=== PATIENT | female | born 1935 | race Caucasian/White ===

== ENCOUNTER 2018-03-30 21:34 | Emergency (ER) | payer OTHER, BC ==
[~2018-03-30] VITALS: Ht 152.4 cm; Wt 86.2 kg
[~2018-03-30 21:34] MED LIST: ACETAMINOPHEN-1 EAC1 PO; ALLEGRA ALLERG180 MG; AMLODIPINE BESY10 MG PO; APAP650 PO; AVAPRO300 MG PO; BYSTOLIC 5 MG5 M1 PO; CELEBREX 200 M200 M1; CYMBALTA30 MG; DESYREL50 MG; HYDROCODON-ACE1 EAC7; KEPPRA 500 MG500 M1; LEVAQUIN 500 M500 MG PO; LEVOTHROID100 MC1; MAXZIDE-25 MG1 EACH PO; PHENERGAN 25 MG25 M1 PO; PRILOSEC 20 MG20 MG; ZOLOFT50 M1 PO
[2018-03-30] MEDS ORDERED: AVAPRO300 MG PO (21:42)
[2018-03-30] MEDS ORDERED: CELEBREX100 MG/1 C PO (21:44)
[2018-03-30] MEDS ORDERED: [UNRECOGNIZED DRUG - OTHER] (21:45)
[2018-03-30] MEDS ORDERED: CARDIZEM CD120 MG PO (21:46)
[2018-03-30] MEDS ORDERED: ELIQUIS5 MG PO (21:46)
[2018-03-30] MEDS ORDERED: OXYBUTYNIN 5 MG5 M2 PO (21:46)
[2018-03-30] MEDS ORDERED: ARICEPT 5 MG TAB5 MG PO (21:48)
[2018-03-30] MEDS ORDERED: LASIX 40 MG TAB40 M2 PO (21:49)
[2018-03-30] MEDS ORDERED: PROBIOTIC1 EAC1 PO (21:49)
[2018-03-30] MEDS ORDERED: POTASSIUM20 PO (21:50)
[2018-03-31] MEDS ORDERED: TRAMADOL 50 MG50 MG PO (01:49)
== END 2018-03-31 02:18 | disposition home or self-care (01) ==
LOC: ER 21:34
DX: S70.02XA Contusion of left hip, initial encounter (principal); I10 Essential (primary) hypertension; F32.9 Major depressive disorder, single episode, unspecified; F41.9 Anxiety disorder, unspecified; Z90.710 Acquired absence of both cervix and uterus; Z88.2 Allergy status to sulfonamides; W06.XXXA Fall from bed, initial encounter; Y93.89 Activity, other specified; Y92.89 Other specified places as the place of occurrence of the external cause; Y99.8 Other external cause status

== ENCOUNTER 2020-06-17 10:15 | Inpatient (IN) | payer OTHER, BC ==
[~2020-06-17] VITALS: Ht 167.6 cm; Wt 117.3 kg
--- NOTE | ~2020-06-17 | EMS ---
[facility] [address] [place] [address] EMS Patient Care Report Name: HERLINDA LOMBARDI Room #: REG GRETTA Louise#: [id number] Admission: 06/17/20 Attend Phys: Discharge: Date of : 39 Report #: [id number] THIS REPORT FOR: //name// Report Transmitted: 06/17/2020 10:11 EMS Care Summary [facility] Incident [id number] @ 06/17/2020 09:27 Incident Location [address] [place] [address] Patient HERLINDA LOMBARDI Female, 85 Years 1935 Patient Address [address] [place] [address] Patient History Congestive Heart Failure (CHF),Dementia,Hypertension (HTN),Atrial Fibrillation,Past Traumatic Brain Injury,Hypothyroidism, Patient Allergies Sulfa, Patient Medications Levothyroxine, Trazodone, Eliquis, Senna, Acetaminophen, Metoprolol, Donepezil, Furosemide, Chief Complaint Vomiting Disposition Transported No Lights/[place] Dispatch Reason Breathing Problem Transported To [facility] Narrative [facility] Medic 1 dispatched to [facility] for a 85 year old female pt with a chief complaint of low O2 and vomiting. Upon arrival crew was met by [facility] [address] [place] [address] EMS Patient Care Report Name: HERLINDA LOMBARDI Room #: REG ER [facility]#: [id number] Admission: 06/17/20 Attend Phys: Discharge: Date of : 39 Report #: [id number] nursing staff who stated that they noticed her O2 sat was in the 80s and placed on her 4 L O2. Staff stated that she had also been vomiting and sounded congested. Pt was found sitting upright in bed. Pt presented with pink dry skin and a patent airway. Pt was placed on 4 L O2. Staff stated that the pt had a hx of a TBI and said inappropriate statements. Pts hx made it difficult for crew to assess. Pt stated that she was "hurting all over". Pt was palced on stretcher by crew and secured using straps. 20 G IV was started in pts left hand. Pt stated multiple times during transport that she "hurt all over". Pt asked repeating questions. Pt was alert to self and event. Pt stated that she felt unwell. Lungs sounds were clear and equal in all lobes. Pt stated that it felt like she had mucus stuck in her throat. Pt denied nausea. Pt denied SOA. Pt was transported to [facility] without incident and care was transferred to ED staff. Initial Vitals @09:39P: 102,BP: 131/89,Pain: 0/10,GCS: 15,CO: 4,SpO2: 97, @09:54P: 92,R: 11,Pain: 2/10,GCS: 15,SpO2: 96, @09:49P: 109,R: 15,BP: 145/95,Pain: 2/10,GCS: 15,CO: 4,Revised Trauma: 12, @09:49P: 104,R: 10,Pain: 2/10,GCS: 15,SpO2: 97, Assessments @09:35MENTAL:Person Oriented,Place Oriented,Event Oriented,SKIN:HEENT:Eyes: Left: Constricted,Eyes: Right: Constricted,Head/Face: No Abnormalities,LUNG SOUNDS:General: No Abnormalities,ABDOMEN:General: No Abnormalities,PELVIS//GI:No Abnormalities,EXTREMITIES:Capillary Refill: Right Upper: < 2 Sec,Left Arm: No Abnormalities,Right Arm: No Abnormalities,Left Leg: No Abnormalities,Right Leg: No Abnormalities,PULSE:Brachial: 2+ Normal,NEURO:No Abnormalities, Impression Vomiting Procedures @09:35ALS AssessmentResponse: UnchangedSucceeded@09:43Normal Saline (.9% NaCl) - Cold 0cc (20 ga) Site: Hand-LeftResponse: UnchangedSucceeded Timeline 09:26,Call Received 09:26,Psap Call 09:27,Dispatched 09:29,En Route 09:31,On Scene 09:34,At Patient 09:35,ALS Assessment,Response: UnchangedSucceeded, 09:39,BP: 131/89 M,PULSE: 102,RR: R,SPO2: 97 Ox,ETCO2: ,BG: ,PAIN: 0,GCS: 15, 09:43,Normal Saline (.9% NaCl) - Cold 0cc 20 ga Site: Hand-Left,Response: [address] [address] EMS Patient Care Report Name: HERLINDA LOMBARDI Room #: REG [place]#: [id number] Admission: 06/17/20 Attend Phys: Discharge: Date of : 39 Report #: [id number] UnchangedSucceeded, 09:45,Depart Scene 09:49,BP: / M,PULSE: 104,RR: 10 R,SPO2: 97 Ox,ETCO2: ,BG: ,PAIN: 2,GCS: 15, 09:49,BP: 145/95 M,PULSE: 109,RR: 15 R,SPO2: Ox,ETCO2: ,BG: ,PAIN: 2,GCS: 15, 09:54,BP: / M,PULSE: 92,RR: 11 R,SPO2: 96 Ox,ETCO2: ,BG: ,PAIN: 2,GCS: 15, 10:05,At Destination 10:22,Call Closed Disclaimer v1.1 Copyright 2020 [employer] This EMS Care Summary contains data elements from the applicable legal record (which may be displayed differently). It is designed to provide pertinent information for the following purposes: continuity of care, clinical quality, and state data reporting. The complete legal record is available to ED staff and administrators of the receiving hospital in [employer] Patient Tracker. All data is provided "as is."
[~2020-06-17 10:15] MED LIST changes: +ARICEPT 5 MG TAB5 MG PO; +CARDIZEM CD120 MG PO; +CELEBREX100 MG/1 C PO; -DESYREL50 MG; +ELIQUIS5 MG PO; +LASIX 40 MG TAB40 M2 PO; +NAMENDA 10 MG T10 MG PO; +OXYBUTYNIN 5 MG5 M2 PO; +POTASSIUM20 PO; +PROBIOTIC1 EAC1 PO; +TRAMADOL 50 MG50 MG PO; +TRAZODONE HCL50 MG PO; +[UNRECOGNIZED DRUG - OTHER]
[2020-06-17 10:16] VITALS: BP 132/84
[2020-06-17 10:51] LABS: ABSOLUTE NEUTROPHILS 4.4 thou/uL (1.4-8.2); BASOPHILS 1.2 % (0.0-2.0); EOSINOPHILS 3.8 % (0.0-3.0); HEMATOCRIT 36.9 % (37.0-47.0); HEMOGLOBIN 11.9 gm/dL (12.0-15.0); LYMPHOCYTES 16.2 % (24.0-44.0); MCH 29.7 pg (26.0-34.0); MCHC 32.1 g/dL (28.0-37.0); MCV 92.5 fL (80.0-100.0); MONOCYTES 11.3 % (1.0-8.0); PLATELET COUNT 236 thou/uL (150-400); POLYS 67.5 % (36.0-66.0); RBC 3.99 mil/uL (4.20-5.00); RDW 17.4 % (10.5-14.5); WBC 6.6 thou/uL (4.0-11.0)
[2020-06-17 11:09] LABS: ANION GAP 10 mmol/L (7-16); BUN 32 mg/dL (7-18); CALCIUM 8.9 mg/dL (8.5-10.1); CHLORIDE 104 mmol/L (98-107); CO2 26 mmol/L (21-32); CREATININE 1.5 mg/dL (0.6-1.0); GLUCOSE 106 mg/dL (74-106); POTASSIUM 3.8 mmol/L (3.5-5.1); SODIUM 140 mmol/L (136-145)
[2020-06-17 11:19] LABS: DIRECT BILIRUBIN 0.1 mg/dL (<0.1-0.2); SGOT 24 U/L (15-37); SGPT 26 U/L (30-65); TOTAL BILIRUBIN 0.3 mg/dL (0.2-1.0); TOTAL PROTEIN 6.2 g/dL (6.4-8.2); TROPONIN-I <0.06 ng/mL (<0.06)
[2020-06-17 12:31] LABS: BE(vivo) 1.6 mmol/L (-2 to +3); HCO3 26.6 mmol/L (22.0-26.0); PCO2 43.5 mmHg (35.0-45.0); PO2 73.6 mmHg (80.0-100.0); pH 7.405 (7.360-7.450); sO2 94.8 % (92.0-98.0)
--- NOTE | 2020-06-17 16:53 | EKG ---
[facility] [place] [place] [address] ELECTROCARDIOGRAM REPORT Name: HARJITHERLINDA CLARK Room #: REG [facility]#: [id number] Admission: 06/17/20 Attend Phys: Discharge: Date of : 39 Report #: [id number] THIS REPORT FOR: cc: FAM - Family physician unknown FAM - Family physician unknown Rony Maki MD [facility] THIS REPORT FOR: //name// [facility] ED Test Date: 2020-06-17 Test Time: 11:23:54 Pat Name: HERLINDA LOMBARDI Department: Room: Gender: F Big Data Developer: no : 1935 Requested By: Sage Patricia Order Number: [id number] MD: Rony Maki Measurements Intervals Reading Rate: 81 P: OR: QRS: 57 QRSD: 101 T: 47 QT: 396 QTc: 460 Interpretive Statements Atrial fibrillation Nonspecific ST segment abnormality Compared to ECG 12/30/2014 20:35:52 Atrial fibrillation has replaced sinus rhythm Electronically Signed On 06-17-2020 16:53:27 CDT by Rony Maki [email or web address] <ELECTRONICALLY SIGNED> By: Rony Maki MD, [facility] 06/17/20 [id number] Rony Maki MD, [facility] /EPI
[2020-06-17 17:22] VITALS: BP 143/96
[2020-06-17] MEDS ORDERED: ELIQUIS2.5 MG PO (17:50)
[2020-06-17] MEDS ORDERED: BUSPIRONE HCL10 MG PO (17:51)
[2020-06-17] MEDS ORDERED: DULOXETINE HCL60 MG PO (17:51)
[2020-06-17] MEDS ORDERED: NAMENDA 10 MG T10 MG PO (17:53)
[2020-06-17] MEDS ORDERED: KAPSPARGO SPRIN50 MG PO (17:54)
[2020-06-17] MEDS ORDERED: KLOR-CON 10 ER10 MEQ PO ×2 (17:54→17:55)
[2020-06-17] MEDS ORDERED: ROXICODONE5 MG PO (17:57)
[2020-06-17 18:30] VITALS: BP 158/96
[2020-06-17] MEDS ORDERED: MIRALAX119 GM PO (18:51)
[2020-06-17] MEDS ORDERED: SUPER THERAVIT1 EACH PO (18:52)
[2020-06-17] MEDS ORDERED: SENNA PLUS TAB1 EACH PO (18:53)
[2020-06-17] MEDS ORDERED: VOLTAREN GEL 1100 G1 TOP (18:54)
[2020-06-17] MEDS ORDERED: DEXTROMETHORPHAN (19:13)
[2020-06-17] MEDS ORDERED: GUAIFENESIN (19:13)
[2020-06-17] MEDS ORDERED: HYDRALAZINE 2525 MG PO (19:14)
[2020-06-17 23:30] VITALS: BP 159/116
[2020-06-18 03:40] VITALS: BP 162/78
[2020-06-18 06:31] LABS: HEMATOCRIT 37.7 % (37.0-47.0); HEMOGLOBIN 12.4 gm/dL (12.0-15.0); MCH 29.8 pg (26.0-34.0); MCHC 32.8 g/dL (28.0-37.0); RBC 4.15 mil/uL (4.20-5.00); RDW 16.6 % (10.5-14.5); WBC 8.6 thou/uL (4.0-11.0)
[2020-06-18 06:56] LABS: CALCIUM 9.8 mg/dL (8.5-10.1); CREATININE 1.2 mg/dL (0.6-1.0); POTASSIUM 4.2 mmol/L (3.5-5.1)
[2020-06-18 07:46] VITALS: BP 80/59
[2020-06-18 08:58] VITALS: BP 158/96
[2020-06-18 16:05] VITALS: BP 96/51
[2020-06-18 20:02] VITALS: BP 104/54
[2020-06-19 04:02] VITALS: BP 153/87
[2020-06-19 07:07] LABS: CALCIUM 8.8 mg/dL (8.5-10.1); CREATININE 1.6 mg/dL (0.6-1.0); POTASSIUM 3.8 mmol/L (3.5-5.1)
[2020-06-19 08:08] VITALS: BP 147/83
[2020-06-19 17:23] VITALS: BP 126/56
[2020-06-19 19:59] VITALS: BP 128/49
--- NOTE | 2020-06-20 08:51 | 2DMMODE ---
[facility] [address] [facility] [place] [employer] [employer] [place] [address] 2 D/M-MODE ECHOCARDIOGRAM Name: HERLINDA LOMBARDI Room #: 455-P ADM IN M.R.#: [id number] Admission: 06/17/20 Attend Phys: Bjorn David MD Discharge: Date of : 39 Report #: [id number] THIS REPORT FOR: cc: FAM - Family physician unknown FAM - Family physician unknown Rudy Mancilla MD [facility] ~ APPROVED REPORT Study performed: 06/20/2020 08:10:07 EXAM: Comprehensive 2D, Doppler, and color-flow Echocardiogram Patient Location: Bedside Room #: [facility] Status: routine BSA: 2.24 HR: 64 bpm BP: 128/49 mmHg Rhythm: NSR Other Information Study Quality: Adequate/off axis Apicals. Technically limited study due to morbid obesity, no mobility. Indications Atrial Fibrillation Dyspnea 2D Dimensions RVDd: 39.42 mm IVSd: 11.29 (7-11mm) LVOT Diam: 19.71 (18-24mm) LVDd: 44.05 mm PWd: 11.00 (7-11mm) Ascending Ao: 27.91 (22-36mm) LVDs: 29.12 (25-40mm) Aortic Root: 31.38 mm Aortic Valve AoV Peak Jerald.: 1.19 m/s AO Peak Gr.: 5.65 mmHg LVOT Max P.47 mmHg LVOT Max V: 0.79 m/s JES Vmax: 2.02 cm2 Pulmonary Valve PV Peak Jerald.: 0.90 m/s PV Peak Gr.: 3.22 mmHg [facility] [address] [place] [address] 2 D/M-MODE ECHOCARDIOGRAM Name: HERLINDA LOMBARDI Room #: 455-P [facility] IN .R.#: [id number] Admission: 06/17/20 Attend Phys: Bjorn David MD Discharge: Date of : 39 Report #: [id number] Tricuspid Valve TR Peak Jerald.: 3.36 m/s RAP Estimate: 10.00 mmHg TR Peak Gr.: 45.22 mmHg PA Pressure: 55.00 mmHg Left Ventricle The left ventricle is normal size. There is normal left ventricular wall thickness. Left ventricular systolic function is normal. LVEF is 55-60%. This study is not technically sufficient to allow evaluation of the LV diastolic function due to atrial fibrillation. Right Ventricle The right ventricle is normal size. Atria Left atrium is dilated. Right atrium is dilated. Aortic Valve Aortic valve leaflets are mildly thickened and calcified. No aortic regurgitation is present. There is no aortic valvular stenosis. Mitral Valve Mitral valve leaflets are mildly thickened. Mild mitral annular calcification. Mild mitral regurgitation. No evidence of mitral valve stenosis. Tricuspid Valve The tricuspid valve is normal in structure. Moderate tricuspid regurgitation. Estimated PAP is 50-55mmHg. Pulmonic Valve The pulmonary valve is normal in structure. Trace pulmonic regurgitation. Great Vessels The aortic root is normal in size. The ascending aorta is normal in size. IVC is normal in size and collapses <50% with inspiration. Pericardium There is no pericardial effusion. <Conclusion> The left ventricle is normal size. [facility] [address] [place] [address] 2 D/M-MODE ECHOCARDIOGRAM Name: HERLINDA LOMBARDI Room #: [address] [place] [address] IN ..#: [id number] Admission: 06/17/20 Attend Phys: Bjorn David MD Discharge: Date of : 39 Report #: [id number] LVEF is 55-60%. This study is not technically sufficient to allow evaluation of the LV diastolic function due to atrial fibrillation. The right ventricle is normal size. Left atrium is dilated. Right atrium is dilated. Aortic valve leaflets are mildly thickened and calcified. There is no aortic valvular stenosis. Mitral valve leaflets are mildly thickened. Mild mitral annular calcification. Mild mitral regurgitation. Moderate tricuspid regurgitation. Estimated PAP is 50-55mmHg. The aortic root is normal in size. There is no pericardial effusion. <ELECTRONICALLY SIGNED> By: Rudy Mancilla MD, [facility] 06/20/20 [phone] 0851 Rudy Mancilla MD, FACC /INF
[2020-06-20 09:20] VITALS: BP 115/65
[2020-06-20 15:08] VITALS: BP 101/41
[2020-06-20 19:32] VITALS: BP 125/57
[2020-06-21 08:00] VITALS: BP 148/67
[2020-06-21 10:59] LABS: HEMATOCRIT 37.4 % (37.0-47.0); HEMOGLOBIN 11.9 gm/dL (12.0-15.0); MCH 29.1 pg (26.0-34.0); MCHC 31.8 g/dL (28.0-37.0); MCV 91.4 fL (80.0-100.0); RBC 4.09 mil/uL (4.20-5.00); RDW 16.6 % (10.5-14.5); WBC 8.1 thou/uL (4.0-11.0)
[2020-06-21 11:12] LABS: CALCIUM 8.8 mg/dL (8.5-10.1); CREATININE 1.4 mg/dL (0.6-1.0); POTASSIUM 3.8 mmol/L (3.5-5.1)
[2020-06-21 15:00] VITALS: BP 137/60
[2020-06-21 21:23] VITALS: BP 153/84
[2020-06-22 05:58] VITALS: BP 150/84
[2020-06-22 07:04] LABS: URINE BILIRUBIN NEGATIVE (Negative); URINE BLOOD NEGATIVE (Negative); URINE CLARITY CLEAR; URINE COLOR YELLOW; URINE GLUCOSE-RANDOM* NEGATIVE (Negative); URINE KETONES NEGATIVE (Negative); URINE LEUKOCYTES NEGATIVE (Negative); URINE NITRITE NEGATIVE (Negative); URINE PROTEIN (DIPSTICK) TRACE (Negative); URINE SPECIFIC GRAVITY 1.015 (1.005-1.035)
[2020-06-22 07:30] VITALS: BP 151/71
[2020-06-22 15:20] VITALS: BP 177/99
[2020-06-22 19:30] VITALS: BP 137/61
[2020-06-23 03:05] VITALS: BP 139/76
[2020-06-23 07:39] VITALS: BP 150/77
[2020-06-23] MEDS ORDERED: ASPIR 8181 MG PO (13:50)
[2020-06-23] MEDS ORDERED: CARDIZEM CD120 MG PO (13:50)
[2020-06-23] MEDS ORDERED: PANTOPRAZOLE SO40 M1 PO (13:50)
[2020-06-23] MEDS ORDERED: METOPROLOL SUCC50 MG PO (13:50)
[2020-06-23] MEDS ORDERED: B-12500 MCG PO (13:50)
[2020-06-23] MEDS ORDERED: ROXICODONE5 MG PO (13:50)
[2020-06-23] MEDS ORDERED: DEMADEX20 MG PO (13:50)
[2020-06-23 16:09] VITALS: BP 117/47
[2020-06-23 20:44] VITALS: BP 116/60
[2020-06-24 08:01] VITALS: BP 159/75
--- NOTE | 2020-06-24 18:06 | PATH ---
[facility] [address] [address] [place] [address] PATHOLOGY RPT PROCEDURE Name: BEATRICE LOMBARDI Room #: 455-P DIS IN M.R.#: [id number] Admission: 06/17/20 Date of : 39 Discharge: 06/24/20 Report #: [id number] Path Case #: [id number] [facility] Accession Number: [id number] . 01 Material submitted: . PART A: stomach - BIOPSY OF ANTRUM R/O H. PYLORI PART B: esophagus - BIOPSY OF ESOPHAGEAL STRICTURE R/O BARRETTS . 01 Clinician provided ICD-10: I50.33 J96.01 . 01 Clinical history: . Acute on chronic diastolic (congestive) heart failure, acute respiratory failure with hypoxia. . 02 Diagnosis: A. Gastric mucosa, antrum, endoscopic biopsy: - Mild reactive gastropathy. - Negative for intestinal metaplasia or atrophy. - Negative for Helicobacter pylori (properly controlled immunohistochemical stain performed). . B. 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 - Background of extensive pseudogoblet cell change as well as moderate chronic inflammation. (IUV:pit 06/24/2020) QTP 06/24/2020 1730 Local . 02 Electronically signed: . Jina Yost MD, Pathologist NPI- [id number] . 01 Gross description: . A. Received in formalin labeled "Beatrice Lombardi, BX of antrum rule out H. pylori" is a 0.5 x 0.3 x 0.1 cm fragment of vora-brown soft tissue. The specimen is submitted entirely in A1. . B. Received in formalin labeled "Beatrice Lombardi, EDUAR of esophageal stricture rule out Jamil's" is a 0.4 x 0.3 x 0.1 cm aggregate of vora-brown soft tissue fragments. The specimen is submitted entirely in B1. ([facility]; 06/23/2020) [facility] 06/23/2020 1511 Local . [address] [place] [address] PATHOLOGY RPT PROCEDURE Name: BEATRICE LOMBARDI Room #: 455-P DIS IN M.R.#: [id number] Admission: 06/17/20 Date of : 39 Discharge: 06/24/20 Report #: [id number] Path Case #: [id number] Pathologist provided ICD-10: K31.9, K22.70 . 02 CPT . 979625, 459743, Y63600 Specimen Comment: A courtesy copy of this report has been sent to [phone], [phone] Specimen Comment: [phone] Specimen Comment: Report sent to / DR DONG Performed at: [address], [place], [place] [id number] MD Rj Tariq MD Phone: [phone] Performed at: [address] [id number] MD Jina Yost MD Phone: [phone]
== END 2020-06-24 11:00 | DRG 291 ==
LOC: ER 10:15 → EROBS 17:00 → 4W 17:00 → 3W 17:00 → 4W 06-19 19:27
PROVIDERS: Emergency Medicine; Internal Medicine; Nurse Practitioner; Physician Assistant; ADMIT Hospitalist; ATTEND Hospitalist
PROC: 0D758ZZ Dilation of Esophagus, Via Natural or Artificial Opening Endoscopic (ICD-10-PCS; principal; 2020-06-22)
PROC: 0DB68ZX Excision of Stomach, Via Natural or Artificial Opening Endoscopic, Diagnostic (ICD-10-PCS; principal; 2020-06-22)
PROC: 0DB58ZX Excision of Esophagus, Via Natural or Artificial Opening Endoscopic, Diagnostic (ICD-10-PCS; 2020-06-22)
DX: I13.0 Hypertensive heart and chronic kidney disease with heart failure and stage 1 through stage 4 chronic kidney disease, or unspecified chronic kidney disease (principal); I50.33 Acute on chronic diastolic (congestive) heart failure; J96.01 Acute respiratory failure with hypoxia; N17.9 Acute kidney failure, unspecified; I48.20 Chronic atrial fibrillation, unspecified; D68.59 Other primary thrombophilia; E46 Unspecified protein-calorie malnutrition; Z68.41 Body mass index [BMI] 40.0-44.9, adult; K29.70 Gastritis, unspecified, without bleeding; E66.01 Morbid (severe) obesity due to excess calories; Z20.828 Contact with and (suspected) exposure to other viral communicable diseases; F32.9 Major depressive disorder, single episode, unspecified; F41.9 Anxiety disorder, unspecified; E03.9 Hypothyroidism, unspecified; N32.81 Overactive bladder; N83.9 Noninflammatory disorder of ovary, fallopian tube and broad ligament, unspecified; R13.10 Dysphagia, unspecified; G47.00 Insomnia, unspecified; M62.84 Sarcopenia; N18.3 Chronic kidney disease, stage 3 (moderate); K57.90 Diverticulosis of intestine, part unspecified, without perforation or abscess without bleeding; E53.8 Deficiency of other specified B group vitamins; Z96.659 Presence of unspecified artificial knee joint; K76.9 Liver disease, unspecified; K22.2 Esophageal obstruction; K44.9 Diaphragmatic hernia without obstruction or gangrene; F03.90 Unspecified dementia, unspecified severity, without behavioral disturbance, psychotic disturbance, mood disturbance, and anxiety; Z71.3 Dietary counseling and surveillance; Z90.711 Acquired absence of uterus with remaining cervical stump; Z87.820 Personal history of traumatic brain injury; Z88.2 Allergy status to sulfonamides; Z79.01 Long term (current) use of anticoagulants; Z82.49 Family history of ischemic heart disease and other diseases of the circulatory system
CPT/HCPCS: 10045; 10047; 10779; 62110; 62900; 70005